=== PATIENT | male | born 1950 | race Caucasian/White ===

== ENCOUNTER 2019-02-24 15:44 | Emergency (ER) | payer MEDICARE, BC ==
[~2019-02-24] VITALS: Ht 180.3 cm; Wt 91.2 kg
--- NOTE | 2019-02-24 15:48 | NUR ---
CAME IN FOR BILATERAL THUMB LACERATION "I WAS TRYING TO CLEAN A JAR WITH BOILING WATER AND IT BROKE INTO PIECES AND WOUND MYSELF". TO ER BED 6, HOOKED TO MONITOR, AWAITING MD RINCON.
--- NOTE | 2019-02-24 15:52 | NUR ---
DR REYNOLDS AT BEDSIDE
[2019-02-24] MEDS ORDERED: TDAP [DIPH/PERTUSSIS/TET] 0.5 ML VIAL IM ONE ×3 (16:00→16:18)
[2019-02-24] MEDS ORDERED: LIDOCAINE/PRILOCAINE (5GM) 5 GM TUBE TP ONE ×2 (16:00)
[2019-02-24] MEDS ORDERED: LIDOCAINE HCL/PF 1% 30 ML VIAL TP ONE (16:00)
[2019-02-24] MEDS ORDERED: LIDOCAINE HCL/MPF 1% 30 ML VIAL IJ ONE (16:01)
--- NOTE | 2019-02-24 18:43 | NUR ---
Patient discharged to home in stable condition. Written and verbal after care instructions given. Patient verbalizes understanding of instruction.
[2019-02-24 18:44] VITALS: BP 158/105
== END 2019-02-24 18:46 | disposition home or self-care (01) ==
LOC: EDBD 15:46 → ER 15:46
DX: S61.412A Laceration without foreign body of left hand, initial encounter (principal); S61.411A Laceration without foreign body of right hand, initial encounter; I10 Essential (primary) hypertension; Z98.890 Other specified postprocedural states; W25.XXXA Contact with sharp glass, initial encounter; Y93.89 Activity, other specified; Y92.89 Other specified places as the place of occurrence of the external cause; Y99.8 Other external cause status
CPT/HCPCS: 12002; 73130 ×2; 90471; 90715; 99284; A6403 ×2; J3490 ×2